=== PATIENT | male | born 1985 | race African-American/Black ===

== ENCOUNTER 2020-05-19 22:00 | Emergency (ER) | payer MEDICAID, OTHER ==
--- NOTE | 2020-05-19 22:05 | EDM.PDOC ---
ED HPI GENERAL MEDICAL PROBLEM - General Stated Complaint: DIFFICULTY BREATHING, POSSIBEL PNUEMONIA Time Seen by Provider: 05/20/20 00:08 Source of Information: Reports: Patient History Limitations: Reports: No Limitations - History of Present Illness INITIAL COMMENTS - FREE TEXT/NARRATIVE: 35-year-old male with history of asthma presents with worsening dyspnea over the last 2 days, associated fever, chills, diffuse myalgia, generalized malaise, nausea, vomiting x2, cough with brown sputum, runny nose. ROS: A 10-point review of systems, other than pertinent positives and negatives as stated per HPI, is otherwise negative Past medical history: No additional pertinent history Past Surgical history: No additional pertinent history Social history: No additional pertinent history Family history: No additional pertinent history PHYSICAL EXAM General: AOx4, GCS = 15, No distress HEENT: dry mucous membrane Neck: supple, no meningismus, no Kernig or Brudzinski Cardiac: S1S2 RRR Respiratory: expiratory bilateral wheezing, no retractions, no tachypneia Abdomen: Soft, nontender, no rebound or guarding, nondistended, no pulsatile mass. Back: nontender Musculoskeletal: NVI distally, no deformity Neuro: No focal deficits, CN 2 - 12 WNL. - Related Data Allergies Allergy/AdvReac Type Severity Reaction Status Date / Time No Known Allergies Allergy Verified 05/19/20 23:49 Home Meds: Home Meds predniSONE [Prednisone] 50 mg PO DAILY #5 tablet 05/20/20 [Rx] ED ROS GENERAL - Review of Systems Review Of Systems: See Below (see dictation) ED EXAM, GENERAL - Physical Exam Exam: See Below (see dictation) Course - Vital Signs Last Recorded V/S: Last Vital Signs Temp 96.7 F L 05/19/20 23:30 Pulse 86 05/19/20 23:52 Resp 16 05/19/20 23:30 BP 136/82 05/19/20 23:52 Pulse Ox 94 L 05/19/20 23:52 - Orders/Labs/Meds Orders: Active Orders 24 hr Category Date Time Status RT Aerosol Therapy [RC] ASDIRECTED Care 05/20/20 01:08 Ordered CORONAVIRUS COVID-19 PCR PHL Stat Lab 05/20/20 00:05 Received Albuterol/Ipratropium [DuoNeb 3.0-0.5 MG/3 ML] Med 05/20/20 01:08 Once 3 ml NEB ONETIME ONE predniSONE Med 05/20/20 01:08 Once 60 mg PO ONETIME ONE Labs: Laboratory Tests 05/20/20 Range/Units 00:03 SARS CoV-2 RNA Rapid JOHANA NEGATIVE (NEGATIVE) - Re-Assessments/Exams Free Text/Narrative Re-Assessment/Exam: 05/20/20 00:34 after observation in the ER, the patient improved and is currently stable for discharge. I performed a repeat exam and did not appreciate new abnormal findings. Patient exhibits normal vital signs and has a normal gait on road test. I advised the patient to return to the ER for reevaluation if symptoms worsened, including fever, worsening pain, or any other worrisome symptoms. I instructed the patient to follow up with their PCP within 2-3 days. MEDICAL DECISION MAKING: I reviewed the patients past medical records, lab and radiographic findings. I discussed the case with the patient. My differential diagnosis included: Bronchitis, Covid, pneumonia. This patient was evaluated for the symptoms described in the history of present illness. They were evaluated in the context of the global COVID-19 pandemic, which necessitated consideration that the patient might be at risk for infection with the SARS-CoV-2 virus that causes COVID-19. Institutional protocols and algorithms that pertain to the evaluation of patients at risk for COVID-19 are in a state of rapid change based on information released by regulatory bodies including the CDC and federal and state organizations. These policies and algorithms were followed during the patient's care. I wore full PPE, N95, face shield, gown and gloves throughout my evaluation and care of this patient. I recommended home isolation. given home isolation instructions. Patient was in no respiratory distress, not hypoxic, otherwise well appearing. I instructed patient to return immediately for worsening symptoms, sob, chest pain, lightheadedness or other concerns. Patient voiced understanding and questions answered. Departure - Departure Time of Disposition: 01:09 Disposition: Home, Self-Care 01 Condition: Good Clinical Impression: Exacerbation of asthma - Discharge Information *PRESCRIPTION DRUG MONITORING PROGRAM REVIEWED*: Not Applicable *COPY OF PRESCRIPTION DRUG MONITORING REPORT IN PATIENT SHAYLEE: Not Applicable Prescriptions: predniSONE [Prednisone] 50 mg PO DAILY #5 tablet Instructions: Shortness of Breath, Adult, [id number], Asthma, Adult Referrals: PCP,None [Primary Care Provider] - Forms: ED Department Discharge Additional Instructions: The need for follow-up, as well as the timing and circumstances, are variable depending upon the specifics of your emergency department visit. If you don't have a primary care physician on staff, we will provide you with a referral. We always advise you to contact your personal physician following an emergency department visit to inform them of the circumstance of the visit and for follow-up with them and/or the need for any referrals to a consulting specialist. The emergency department will also refer you to a specialist when appropriate. This referral assures that you have the opportunity for follow-up care with a specialist. All of these measure are taken in an effort to provide you with optimal care, which includes your follow-up. Under all circumstances we always encourage you to contact your private physician who remains a resource for coordinating your care. When calling for fo llow-up care, please make the office aware that this follow-up is from your recent emergency room visit. If for any reason you are refused follow-up, please contact the [facility] Emergency Department at and asked to speak to the emergency department charge nurse. If you do not have a primary care doctor, please follow up with the clinics below within 3-5 days. [facility] - Primary Care [address] [place] [id number] [address] Sepsis Event Note (ED) - Focused Exam Vital Signs: Vital Signs Temp Pulse Resp BP Pulse Ox 05/19/20 23:52 86 136/82 94 L 05/19/20 23:30 96.7 F L 106 H 16 105/61 99 - My Orders Last 24 Hours: My Active Orders 05/20/20 00:05 CORONAVIRUS COVID-19 PCR PHL Stat 05/20/20 01:08 RT Aerosol Therapy [RC] ASDIRECTED Albuterol/Ipratropium [DuoNeb 3.0-0.5 MG/3 ML] 3 ml NEB ONETIME ONE predniSONE 60 mg PO ONETIME ONE - Assessment/Plan Last 24 Hours: My Active Orders 05/20/20 00:05 CORONAVIRUS COVID-19 PCR PHL Stat 05/20/20 01:08 RT Aerosol Therapy [RC] ASDIRECTED Albuterol/Ipratropium [DuoNeb 3.0-0.5 MG/3 ML] 3 ml NEB ONETIME ONE predniSONE 60 mg PO ONETIME ONE
--- NOTE | 2020-05-19 22:46 | CR ---
INDICATION: Cough TECHNIQUE: Chest radiograph 1 view COMPARISON: None FINDINGS: Mediastinum: The mediastinum is normal in appearance. The heart silhouette is normal in size and morphology. Lung: Both lungs are unremarkable in appearance. No sign of pleural effusion seen. No pneumothorax is identified. Bone and Soft tissue: Unremarkable for age. IMPRESSION: 1. No acute cardiopulmonary disease is seen. Dictated by: Jet Garcia MD @ 05/19/2020 22:45:11 (Electronically Signed)
[2020-05-20] MEDS ORDERED: predniSONE 20 MG Tab PO ONE (01:08)
[2020-05-20] MEDS ORDERED: Albuterol/Ipratropium 3.0-0.5 MG/3 ML Neb Soln NEB ONE (01:08)
[2020-05-20] MEDS ORDERED: Benzonatate 100 MG Cap PO PRN (01:32)
== END 2020-05-20 01:34 | disposition home or self-care (01) ==
LOC: MW.ED 22:00
DX: J45.901 Unspecified asthma with (acute) exacerbation (principal); Z20.828 Contact with and (suspected) exposure to other viral communicable diseases
CPT/HCPCS: 71045; 87635; 99285; A9270; 99283; J7620-GY; U0002

== ENCOUNTER 2020-05-20 19:24 | Emergency (ER) | payer MEDICAID ==
[2020-05-20] MEDS ORDERED: Sodium Chloride 0.9% 10 ML Syringe FLUSH PRN (19:37)
[2020-05-20] MEDS ORDERED: Ondansetron 4 MG/2 ML SDV IVPUSH ONE (19:37)
[2020-05-20] MEDS ORDERED: Sodium Chloride 0.9% 2.5 ML Syringe FLUSH PRN (19:37)
[2020-05-20] MEDS ORDERED: Lactated Ringers 1,000 ML IV ONE (19:37)
[2020-05-20] MEDS ORDERED: Pantoprazole 40 MG in Sodium Chloride 0.9% 10 ML IV ONE (19:37)
[2020-05-20] MEDS ORDERED: Famotidine 20 MG/2 ML SDV IVPUSH ONE (19:37)
[2020-05-20] MEDS ORDERED: Alum Hydrox/Mag Hydrox/Simeth 15 ML, Lidocaine 2% 5 ML PO ONE ×2 (19:37)
--- NOTE | 2020-05-20 19:43 | EDM.PDOC ---
ED HPI GENERAL MEDICAL PROBLEM - General Chief Complaint: Gastrointestinal Problem Stated Complaint: GASTRO PROBLEM, VOMITTING Time Seen by Provider: 05/20/20 19:28 Source of Information: Reports: Patient History Limitations: Reports: No Limitations - History of Present Illness INITIAL COMMENTS - FREE TEXT/NARRATIVE: 35-year-old male with history of gastritis presents with epigastric pain that started today. He was seen in the ER yesterday for asthma exacerbation and was prescribed omeprazole because he ran out. Today he describes pain in the epigastric region, sharp, burning sensation, constant, nonradiating, no alleviating or exacerbating factors. He tried taking omeprazole and vomited it out. Denies fever, chills, chest pain, shortness of breath, diarrhea. ROS: A 10-point review of systems, other than pertinent positives and negatives as stated per HPI, is otherwise negative Past medical history: No additional pertinent history Past Surgical history: No additional pertinent history Social history: No additional pertinent history Family history: No additional pertinent history PHYSICAL EXAM General: AOx4, GCS = 15, No distress HEENT: dry mucous membrane Neck: supple, no meningismus, no Kernig or Brudzinski Cardiac: S1S2 RRR Respiratory: CTAB, no crackles or rales, no wheezing Abdomen: Soft, epigastric tenderness, no rebound or guarding, nondistended, no pulsatile mass. Back: nontender Musculoskeletal: NVI distally, no deformity Neuro: No focal deficits, CN 2 - 12 WNL. abdominal Pain Score (Numeric/FACES): 10 - Related Data Allergies Allergy/AdvReac Type Severity Reaction Status Date / Time No Known Allergies Allergy Verified 05/20/20 19:30 Home Meds: Home Meds Albuterol Sulfate [Proair Hfa] 8.5 gm IH Q4HR PRN #1 [id number] 05/20/20 [Rx] Benzonatate 100 mg PO BID #10 capsule 05/20/20 [Rx] Omeprazole 20 mg PO BID #20 capsule. 05/20/20 [Rx] Ondansetron [Zofran ODT] 4 mg PO Q6H PRN #12 tab.dis 05/20/20 [Rx] predniSONE [Prednisone] 50 mg PO DAILY #5 tablet 05/20/20 [Rx] Past Medical History - Past Health History Medical/Surgical History: Denies Medical/Surgical History Cardiovascular History: Reports: None Respiratory History: Reports: None Gastrointestinal History: Reports: None Genitourinary History: Reports: None Musculoskeletal History: Reports: None Psychiatric History: Reports: None Endocrine/Metabolic History: Reports: None Hematologic History: Reports: None Immunologic History: Reports: None Oncologic (Cancer) History: Reports: None Dermatologic History: Reports: None - Infectious Disease History Infectious Disease History: Reports: Chicken Pox Social & Family History - Family History Family Medical History: Noncontributory - Recreational Drug Use Recreational Drug Use: No ED ROS GENERAL - Review of Systems Review Of Systems: See Below (see dictation) ED EXAM, GI/ABD - Physical Exam Exam: See Below (see dictation) Course - Vital Signs Last Recorded V/S: Last Vital Signs Temp 97.6 F 05/20/20 19:31 Pulse 90 05/20/20 20:44 Resp 18 05/20/20 20:44 BP 106/62 05/20/20 20:44 Pulse Ox 93 L 05/20/20 20:44 - Orders/Labs/Meds Orders: Active Orders 24 hr Category Date Time Status Sodium Chloride 0.9% [Saline Flush] Med 05/20/20 19:37 Active 10 ml FLUSH ASDIRECTED PRN Sodium Chloride 0.9% [Saline Flush] Med 05/20/20 19:37 Active 2.5 ml FLUSH ASDIRECTED PRN Saline Lock Insert [OM.PC] Stat Oth 05/20/20 19:38 Ordered Medication Orders Sodium Chloride (Saline Flush) 10 ml FLUSH ASDIRECTED PRN PRN Reason: Keep Vein Open Last Admin: 05/20/20 20:08 Dose: 10 ml Documented by: KATHERIN Sodium Chloride (Saline Flush) 2.5 ml FLUSH ASDIRECTED PRN PRN Reason: Keep Vein Open Last Admin: 05/20/20 20:08 Dose: 2.5 ml Documented by: KATHERIN Labs: Laboratory Tests 05/20/20 05/20/20 Range/Units 19:40 19:40 WBC 11.80 H (4.0-11.0) K/uL RBC 4.81 (4.50-5.90) M/uL Hgb 15.2 (13.0-17.0) g/dL Hct 43.6 (38.0-50.0) % MCV 90.6 (80.0-98.0) fL MCH 31.6 (27.0-32.0) pg MCHC 34.9 (31.0-37.0) g/dL RDW Std Deviation 41.3 (28.0-62.0) fl RDW Coeff of Danny 12 (11.0-15.0) % Plt Count 253 (150-400) K/uL MPV 10.00 (7.40-12.00) fL Neut % (Auto) 78.4 (48.0-80.0) % Lymph % (Auto) 15.1 L (16.0-40.0) % Prairie % (Auto) 6.3 (0.0-15.0) % Eos % (Auto) 0.0 (0.0-7.0) % Baso % (Auto) 0.2 (0.0-1.5) % Neut # (Auto) 9.3 H (1.4-5.7) K/uL Lymph # (Auto) 1.8 (0.6-2.4) K/uL Prairie # (Auto) 0.7 (0.0-0.8) K/uL Eos # (Auto) 0.0 (0.0-0.7) K/uL Baso # (Auto) 0.0 (0.0-0.1) K/uL Nucleated RBC % 0.0 /100WBC Nucleated RBCs # 0 K/uL Sodium 134 L (136-148) mmol/L Potassium 3.8 (3.5-5.1) mmol/L Chloride 99 (98-107) mmol/L Carbon Dioxide 24.6 (21.0-32.0) mmol/L BUN 11 (7.0-18.0) mg/dL Creatinine 1.2 (0.8-1.3) mg/dL Est Cr Clr Drug Dosing 100.85 mL/min Estimated GFR (MDRD) > 60.0 ml/min Glucose 148 H (74-106) mg/dL Calcium 8.9 (8.5-10.1) mg/dL Total Bilirubin 0.9 (0.2-1.0) mg/dL AST 22 (15-37) IU/L ALT 36 (14-63) IU/L Alkaline Phosphatase 75 (46-116) U/L Total Protein 7.7 (6.4-8.2) g/dL Albumin 4.0 (3.4-5.0) g/dL Globulin 3.7 (2.6-4.0) g/dL Albumin/Globulin Ratio 1.1 (0.9-1.6) Lipase 97 (73-393) U/L Meds: Medications Generic Name Dose Route Start Last Admin Trade Name Freq PRN Reason Stop Dose Admin Sodium Chloride 10 ml 05/20/20 19:37 05/20/20 20:08 Saline Flush FLUSH 10 ml ASDIRECTED PRN Administration Keep Vein Open Sodium Chloride 2.5 ml 05/20/20 19:37 05/20/20 20:08 Saline Flush FLUSH 2.5 ml ASDIRECTED PRN Administration Keep Vein Open Discontinued Medications Generic Name Dose Route Start Last Admin Trade Name Freq PRN Reason Stop Dose Admin Al Hydroxide/Mg Hydroxide 15 0 ml 05/20/20 19:37 05/20/20 20:02 ml/ Lidocaine HCl 5 ml PO 05/20/20 19:38 1 each ONETIME ONE Administration Famotidine 20 mg 05/20/20 19:37 05/20/20 20:04 Pepcid IVPUSH 05/20/20 19:38 20 mg ONETIME ONE Administration Haloperidol Lactate 3 mg 05/20/20 20:29 05/20/20 20:42 Haldol IM 05/20/20 20:30 3 mg ONETIME ONE Administration Lactated Ringer's 1,000 mls @ 999 mls/hr 05/20/20 19:37 05/20/20 20:01 Ringers, Lactated IV 05/20/20 20:37 999 mls/hr .BOLUS ONE Administration Pantoprazole Sodium 40 mg/ 10 mls @ 300 mls/hr 05/20/20 19:37 05/20/20 20:08 Sodium Chloride IV 05/20/20 19:38 300 mls/hr NOW ONE Administration Ondansetron HCl 4 mg 05/20/20 19:37 05/20/20 20:03 Zofran IVPUSH 05/20/20 19:38 4 mg ONETIME ONE Administration - Re-Assessments/Exams Free Text/Narrative Re-Assessment/Exam: 05/20/20 21:44 After IV Pepcid, Protonix, Haldol 3 mg IV in the ER, abdominal pain improved and is currently stable for discharge. I performed a repeat exam and did not appreciate new abnormal findings. Patient exhibits normal vital signs and has a normal gait on road test. I advised the patient to return to the ER for reevaluation if symptoms worsened, including fever, worsening pain, or any other worrisome symptoms. I instructed the patient to follow up with their PCP within 2-3 days. MEDICAL DECISION MAKING: I reviewed the patients past medical records, lab and radiographic findings. I discussed the case with the patient. My differential diagnosis included: Gastritis, peptic ulcer disease, pancreatitis. Patient's physical exam demonstrated no tenderness to the periumbilical or right lower quadrant, I do not suspect appendicitis. He had no tenderness to right upper quadrant, I do not suspect biliary colic or acute cholecystitis. US was unremarkble. His pain was resolved after IV Haldol. Repeat exam did not demonstrate any tenderness. Departure - Departure Time of Disposition: 21:44 Disposition: Home, Self-Care 01 Condition: Good Clinical Impression: Abdominal pain - Discharge Information *PRESCRIPTION DRUG MONITORING PROGRAM REVIEWED*: Not Applicable *COPY OF PRESCRIPTION DRUG MONITORING REPORT IN PATIENT SHAYLEE: Not Applicable Prescriptions: Ondansetron [Zofran ODT] 4 mg PO Q6H PRN #12 tab.dis PRN Reason: Vomiting Referrals: PCP,None [Primary Care Provider] - Forms: ED Department Discharge Additional Instructions: The need for follow-up, as well as the timing and circumstances, are variable depending upon the specifics of your emergency department visit. If you don't have a primary care physician on staff, we will provide you with a referral. We always advise you to contact your personal physician following an emergency department visit to inform them of the circumstance of the visit and for follow-up with them and/or the need for any referrals to a consulting specialist. The emergency department will also refer you to a specialist when appropriate. This referral assures that you have the opportunity for follow-up care with a specialist. All of these measure are taken in an effort to provide you with optimal care, which includes your follow-up. Under all circumstances we always encourage you to contact your private physician who remains a resource for coordinating your care. When calling for follow-up care, please make the office aware that this follow-up is from your recent emergency room visit. If for any reason you are refused follow-up, please contact the [facility] Emergency Department at and asked to speak to the emergency department charge nurse. If you do not have a primary care doctor, please follow up with the clinics below within 3-5 days. [facility] - Primary Care [address] [place] [address] [place] [address] Sepsis Event Note (ED) - Evaluation Sepsis Screening Result: No Definite Risk - Focused Exam Vital Signs: Vital Signs Temp Pulse Resp BP Pulse Ox 05/20/20 20:44 90 18 106/62 93 L 05/20/20 19:31 97.6 F 79 16 98/55 L 91 L - My Orders Last 24 Hours: My Active Orders 05/20/20 19:37 Sodium Chloride 0.9% [Saline Flush] 10 ml FLUSH ASDIRECTED PRN Sodium Chloride 0.9% [Saline Flush] 2.5 ml FLUSH ASDIRECTED PRN 05/20/20 19:38 Saline Lock Insert [OM.PC] Stat - Assessment/Plan Last 24 Hours: My Active Orders 05/20/20 19:37 Sodium Chloride 0.9% [Saline Flush] 10 ml FLUSH ASDIRECTED PRN Sodium Chloride 0.9% [Saline Flush] 2.5 ml FLUSH ASDIRECTED PRN 05/20/20 19:38 Saline Lock Insert [OM.PC] Stat
[2020-05-20 20:10] LABS: BLOOD UREA NITROGEN,BUN 11 mg/dL (7.0-18.0); CARBON DIOXIDE,CO2 24.6 mmol/L (21.0-32.0); CHLORIDE,CL 99 mmol/L (98-107); GLUCOSE RANDOM 148 mg/dL (74-106); LIPASE 97 U/L (73-393); POTASSIUM,K 3.8 mmol/L (3.5-5.1); SODIUM,NA 134 mmol/L (136-148)
[2020-05-20] MEDS ORDERED: Haloperidol Lactate 5 MG/ML SDV IM ONE (20:29)
--- NOTE | 2020-05-20 21:43 | US ---
INDICATION: Abdominal pain TECHNIQUE: Ultrasound abdomen limited. Sonographic images of the right upper quadrant were obtained using puentes-scale and color Doppler images. COMPARISON: None FINDINGS: Liver: Normal in size and echotexture. No masses. No intrahepatic biliary dilatation. Gallbladder: No stones or sludge. Normal wall thickness. No pericholecystic fluid. Common bile duct: 6 mm. Pancreas: Normal. Right kidney: Normal in size. Normal echotexture and cortex. No suspicious masses, stones, or hydronephrosis. Vasculature: Proximal abdominal aorta and IVC are normal. IMPRESSION: Nonspecific borderline common bile duct dilatation. Otherwise unremarkable exam. No specific finding to explain pain. Dictated by Donald Gauthier MD @ May 20 2020 9:39PM Signed by Dr. Donald Gauthier @ May 20 2020 9:41PM
== END 2020-05-20 21:50 | disposition home or self-care (01) ==
LOC: MW.ED 19:24
DX: R10.13 Epigastric pain (principal); R11.2 Nausea with vomiting, unspecified
CPT/HCPCS: 36415; 76705; 80053; 83690; 85025; 96372; 96374; 96375; 99284; A9270; C9113; J1630; J2405; J3490; J7120